=== PATIENT | female | born 1965 | race Caucasian/White ===

== ENCOUNTER 2022-10-20 12:34 | Outpatient (CLI) | payer OTHER, SELFPAY | END 2022-10-20 12:35 | disposition home or self-care (01) | PROVIDERS: Visit Provider Physician Assistant | DX: C79.31 Secondary malignant neoplasm of brain (principal) | CPT/HCPCS: 70553; A9575 ==

== ENCOUNTER 2022-12-09 13:58 | Outpatient (CLI) | payer OTHER, SELFPAY ==
--- NOTE | 2022-12-09 14:15 | CRLHL7_ITS ---
For Patients: As a result of the 21st Century Cures Act, medical imaging exams and procedure reports are released immediately into your electronic medical record. You may view this report before your referring provider. If you have questions, please contact your health care provider. EXAM: PET-CT SKULL BASE TO THIGH CLINICAL INFORMATION: 57-yo female with a history of metastatic non-small cell lung carcinoma with prior left lung wedge resection.. Prior chemotherapy and radiation treatment. Current immunotherapy. Past medical history of laryngeal cancer (2016). Patient is referred for further characterization/response assessment. TECHNIQUE: Radiopharmaceutical: 11.65 mCi of 18F-FDG Uptake time: 66 minutes Blood glucose level at the time of injection: 120 mg/dL Field of view: Skull base to mid-thighs CT protocol: The low-dose, free-breathing, noncontrast CT performed as part of this study is designed for the purposes of attenuation correction and lesion localization, and it is neither sufficient, nor it should be substituted for diagnostic purposes. COMPARISON: PET-CT 07/30/2023 FINDINGS: Physiologic background liver standardized uptake value (SUV mean and SUV max) reported for comparison between PET studies: 2.0 and 2.5. Visualized head and neck: Physiologic uptake in the visualized portions of the brain and salivary glands. Similar configuration and metabolic uptake within the larynx, SUV max 9.2 (fused PET-CT image 47). Previously 9.2. -post treatment changes with similar generalized uptake in the head and neck soft tissues more prominent on the left. Variable uptake within the left sternocleidomastoid and left scalene muscles, SUV max 3.0. Previously 2.9. Head and neck lymph nodes: Persistent metabolic uptake within adjacent low left neck/medial supraclavicular lymph nodes, largest 0.9 cm short axis, SUV max 14.4. Previously 8.6. Lungs: Prior left lung wedge resection. Respiratory motion artifact. No new hypermetabolic lung nodules. Similar small nodular opacity anterior right middle lobe with low level uptake, SUV max 0.4. New focal opacity anterior medial right lower lobe with mild uptake may be inflammatory, SUV max 1.2 (fused PET-CT image 124). Diffuse emphysematous changes with biapical and scattered areas of subpleural scarring. No consolidation. Thoracic lymph nodes: No new hypermetabolic mediastinal or axillary lymph nodes. Variable right hilar suzanne uptake, not measurable, SUV max 3.0. Previously the 2.3. Other chest findings: Mild thoracic aortic vascular calcification. Generalized esophageal uptake is nonspecific, possibly reactive/inflammatory or related to reflux. Hepatobiliary: No abnormal uptake. Spleen: No abnormal uptake. Adrenals: No abnormal uptake. Pancreas: Overall decreased size and number with variable uptake in multiple left upper quadrant masses within and adjacent to the tail of the pancreas. For example: -largest left upper quadrant mass lateral to the pancreatic tail, 2.1 cm, SUV max 21.4 (fused PET-CT image 146). Previously 1.8 cm, SUV max 20.5. -pancreatic tail uptake, 0.9 cm, SUV max 8.4 (fused PET-CT image 144). Previously 2.7 cm transverse, SUV max 20.8 (fused PET-CT image 156). -resolved foci of curvilinear uptake in the left retroperitoneum bordering the pancreatic tail, previously fused PET-CT images 150-151. Kidneys and bladder: No abnormal uptake. No obstruction. Tracer activity in the renal collecting systems. Limited bladder distention with mild wall thickening. Bowel and peritoneum: Long segment curvilinear bowel uptake within the upper abdomen and right lower quadrant extending to the right pelvis is difficult to localize to small or large bowel given motion artifact and paucity of fat. Correlate with symptoms for potential enteritis. Scattered stool. No high-grade obstruction. Abdominopelvic lymph nodes: Persistent and mildly increased left retroperitoneal foci of uptake difficult to discern from adjacent bowel. For example: -new left retroperitoneal lymph node, 0.7 cm short axis, SUV max 9.6 (fused PET-CT image 169). -left retroperitoneal nodular uptake, 1.5 cm, SUV max 24.3 (fused PET-CT image 169). Previously, SUV max 15.8 (fused PET-CT image 174). -more conspicuous left retroperitoneal nodular uptake borders the left psoas difficult to discern from adjacent bowel, SUV max 18.2 (fused PET-CT image 179). Previously 6.8. Musculoskeletal, soft tissues, skin: No suspicious tracer avid osseous lesions or abnormal bony uptake. Healing left posterior 7th rib fracture with uptake. Degenerative type uptake within the shoulders spine and hips.. Bilateral L5 pars defects. -post radiation changes with relative photopenia in the cervical spine. -resolved nodular soft tissue uptake adjacent to the right L2-3 posterior elements. -decreased nodular intercostal soft tissue uptake right posterior T9-T10 level, SUV max 1.8. Previously 2.2. Other: Diffuse aortoiliac atherosclerotic vascular calcifications. IMPRESSION: 1. Prior left lung wedge resection with no suspicious left lung uptake. No new hypermetabolic lung nodules. Small focal opacity anterior right base with mild uptake is nonspecific though may be inflammatory. 2. Increased uptake within adjacent metabolically active low left neck/medial supraclavicular lymph nodes. 3. Decreased overall size and number of multiple left upper quadrant masses within and bordering the pancreatic tail. Residual lesions demonstrate variable intense uptake. 4. Increased uptake within several left retroperitoneal lesions difficult to discern from adjacent bowel. New left retroperitoneal lymph node with moderately intense uptake. 5. Curvilinear long segment bowel uptake within the abdomen, right lower quadrant extending in the pelvis difficult to localize to small or large bowel given paucity of fat and lack of contrast. Correlate for symptoms to exclude enteritis. Consider follow-up CT imaging with oral and IV contrast for further characterization. 6. No new tracer avid osseous lesions. Resolved right paraspinal muscular uptake and decreased uptake within intercostal soft tissues in the lower right posterior chest. 7. Generalized uptake within the head and neck soft tissues with similar increased activity in the larynx. 8. Other nonacute findings as detailed in the body of the report Dictated by Chapincito Hope MD @ 12/15/2022 8:35:08 AM (Electronically Signed)
== END 2022-12-09 13:59 | disposition home or self-care (01) ==
LOC: RAD 14:00
PROVIDERS: Visit Provider Clinical Nurse Specialist
DX: C34.12 Malignant neoplasm of upper lobe, left bronchus or lung (principal)
CPT/HCPCS: 78815; A9552

== ENCOUNTER 2022-12-16 09:30 | Outpatient (RCR) | payer OTHER, SELFPAY ==
--- NOTE | 2022-06-15 14:17 | ONC.NURNOTE ---
Received call from Karissa Laureano PA-C with Rad Onc. Rad Onc to cancel CT on , as it was an old appt, and work on setting up a Pet CT this week. Reviewed pt to see Dr. Bishop 06/21; Rad Onc setting pt up to see Dr. Kebede on 06/[address] Bishop.
[2022-07-22 11:05] VITALS: BMI 16.9
[2022-08-06 10:58] LABS: Basophils Absolute Auto 0.03 K/uL (0.00-0.30); Basophils Percent Auto 0.4 % (0.0-3.0); Eosinophils Absolute Auto 0.08 K/uL (0.00-0.50); Hematocrit 34.6 % (33.0-51.0); Hemoglobin* 11.5 gm/dL (12.0-16.0); Immature Granulocytes Abs Auto 0.01 K/uL (0.00-0.30); Lymphocytes Percent Auto 8.8 % (20-44); Mean Corpuscular HGB Conc 33 gm/dL (32-36); Mean Corpuscular Hemoglobin 29 pg (26-34); Mean Corpuscular Volume 88 fL (80-100); Monocytes Percent Auto 9.8 % (0.0-11.0); Neutrophils Percent Auto 79.9 % (42.0-72.0); Platelet Count* 343 K/uL (140-440); RDW Coefficient of Variation % 14.4 % (11.5-15.5); Red Blood Count 3.95 m/uL (4.00-5.20); White Blood Count* 8.04 K/uL (4.50-11.00)
[2022-08-06 11:03] LABS: Slide Review Reflex No
[2022-08-06 11:04] LABS: Albumin* 4.1 g/dL (3.3-5.0); Chloride* 96 mmol/L (96-114); Potassium* 3.8 mmol/L (3.6-5.1); Sodium* 132 mmol/L (135-149)
[2022-08-06 11:06] LABS: Creatinine* 0.6 mg/dL (0.5-1.5); Est. Creatinine Clearance* 72.09; Estimated Glomerular Filt Rate 104 ml/min
[2022-08-06 11:07] LABS: Alanine Aminotransferase* 23 U/L (4-35); Alkaline Phosphatase* 94 U/L (40-150); Aspartate Amino Transferase* 28 U/L (12-35); Bilirubin Total* 0.2 mg/dL (0.1-1.5); Blood Urea Nitrogen* 12 mg/dL (7-30); Carbon Dioxide* 32 mmol/L (20-32); Glucose* 146 mg/dL (60-115); Total Protein* 7.4 g/dL (6.0-8.3)
[2022-08-06 11:08] LABS: Calcium* 9.1 mg/dL (8.4-10.6)
[2022-08-07 15:25] LABS: Cortisol, Serum 15.8 ug/dL
--- NOTE | 2022-08-12 17:59 | URNOTE ---
Request received from [facility] for authorization for Derian ([id number]). Prior authorization received for a coverage period 08/10/22-11/10/22.
[2022-08-13] MEDS: PEMBROLIZUMAB 200 MG, TUBING PRIMARY 1 EACH, In-line 0.2 micron filter set 1 EACH in 0.... 216 MG IVPB (14:39)
[2022-08-13 15:03] VITALS: BP 111/61; PULSE 110; RESP 18; TEMP 36.4; O2SAT 93
--- NOTE | 2022-08-16 11:13 | AT.DPN ---
denies any discomfort from her treatment tuesday. did mention that she feels like her COPD/asthma is a little flared up. dry cough. up to 2 nebs a day. states her primary has put her on prednisone in the past. denies fever. pt will be calling her primary and encourage to call us back if any problems.
[2022-09-02 08:59] LABS: Basophils Percent Auto 0.1 % (0.0-3.0); Eosinophils Percent Auto 0.5 % (0.0-7.0); Hemoglobin* 12.1 gm/dL (12.0-16.0); Immature Granulocytes Abs Auto 0.03 K/uL (0.00-0.30); Mean Corpuscular HGB Conc 33 gm/dL (32-36); Mean Corpuscular Hemoglobin 28 pg (26-34); Mean Corpuscular Volume 86 fL (80-100); Monocytes Percent Auto 6.9 % (0.0-11.0); Neutrophils Percent Auto 89.3 % (42.0-72.0); Platelet Count* 436 K/uL (140-440); Red Blood Count 4.28 m/uL (4.00-5.20); White Blood Count* 15.26 K/uL (4.50-11.00)
[2022-09-02 09:07] LABS: Slide Review Reflex No
[2022-09-02 09:20] LABS: Albumin* 4.3 g/dL (3.3-5.0); Chloride* 90 mmol/L (96-114); Sodium* 130 mmol/L (135-149)
[2022-09-02 09:21] LABS: Potassium* 4.2 mmol/L (3.6-5.1)
[2022-09-02 09:23] LABS: Alkaline Phosphatase* 110 U/L (40-150); Aspartate Amino Transferase* 40 U/L (12-35); Bilirubin Total* 0.2 mg/dL (0.1-1.5); Blood Urea Nitrogen* 14 mg/dL (7-30); Carbon Dioxide* 35 mmol/L (20-32); Creatinine* 0.7 mg/dL (0.5-1.5); Est. Creatinine Clearance* 63.79; Estimated Glomerular Filt Rate 100 ml/min; Glucose* 147 mg/dL (60-115); Total Protein* 7.7 g/dL (6.0-8.3)
[2022-09-02 09:24] LABS: Alanine Aminotransferase* 41 U/L (4-35); Calcium* 9.2 mg/dL (8.4-10.6)
[2022-09-03 14:10] LABS: Cortisol, Serum 10.6 ug/dL
[2022-09-16 13:48] LABS: Albumin* 3.8 g/dL (3.3-5.0); Chloride* 91 mmol/L (96-114); Potassium* 4.7 mmol/L (3.6-5.1); Sodium* 131 mmol/L (135-149)
[2022-09-16 13:51] LABS: Alanine Aminotransferase* 27 U/L (4-35); Aspartate Amino Transferase* 26 U/L (12-35); Bilirubin Total* 0.2 mg/dL (0.1-1.5); Blood Urea Nitrogen* 11 mg/dL (7-30); Carbon Dioxide* 36 mmol/L (20-32); Creatinine* 0.6 mg/dL (0.5-1.5); Est. Creatinine Clearance* 74.43; Estimated Glomerular Filt Rate 104 ml/min; Glucose* 117 mg/dL (60-115)
[2022-09-16 13:52] LABS: Basophils Percent Auto 0.2 % (0.0-3.0); Eosinophils Percent Auto 0.2 % (0.0-7.0); Hematocrit 34.7 % (33.0-51.0); Hemoglobin* 11.1 gm/dL (12.0-16.0); Immature Granulocytes Pct Auto 0.1 %; Lymphocytes Percent Auto 3.2 % (20-44); Mean Corpuscular HGB Conc 32 gm/dL (32-36); Mean Corpuscular Hemoglobin 28 pg (26-34); Mean Corpuscular Volume 86 fL (80-100); Monocytes Percent Auto 3.6 % (0.0-11.0); Neutrophils Percent Auto 92.7 % (42.0-72.0); Platelet Count* 432 K/uL (140-440); Red Blood Count 4.03 m/uL (4.00-5.20); White Blood Count* 12.07 K/uL (4.50-11.00)
[2022-09-16 13:59] LABS: Slide Review Reflex No
[2022-09-16 14:07] LABS: Alkaline Phosphatase* 89 U/L (40-150)
[2022-09-16] MEDS: PEMBROLIZUMAB 200 MG, TUBING PRIMARY 1 EACH, In-line 0.2 micron filter set 1 EACH in 0.... 216 MG IVPB (14:52)
--- NOTE | 2022-09-17 08:26 | ONC.NURNOTE ---
Received request for records for disability benefits. Records faxed to [place] [facility] [place] [phone].
[2022-09-19 09:41] LABS: Cortisol, Serum 5.1 ug/dL
[2022-10-14 08:30] LABS: Basophils Absolute Auto 0.02 K/uL (0.00-0.30); Basophils Percent Auto 0.2 % (0.0-3.0); Eosinophils Absolute Auto 0.07 K/uL (0.00-0.50); Eosinophils Percent Auto 0.7 % (0.0-7.0); Hematocrit 36.3 % (33.0-51.0); Hemoglobin* 11.7 gm/dL (12.0-16.0); Immature Granulocytes Abs Auto 0.01 K/uL (0.00-0.30); Immature Granulocytes Pct Auto 0.1 %; Lymphocytes Percent Auto 8.9 % (20-44); Mean Corpuscular HGB Conc 32 gm/dL (32-36); Mean Corpuscular Hemoglobin 27 pg (26-34); Mean Corpuscular Volume 84 fL (80-100); Neutrophils Percent Auto 79.1 % (42.0-72.0); Platelet Count* 441 K/uL (140-440); RDW Coefficient of Variation % 14.6 % (11.5-15.5); Red Blood Count 4.34 m/uL (4.00-5.20); White Blood Count* 9.44 K/uL (4.50-11.00)
[2022-10-14 08:36] LABS: Slide Review Reflex No
[2022-10-14 08:37] LABS: Albumin* 4.3 g/dL (3.3-5.0); Chloride* 94 mmol/L (96-114)
[2022-10-14 08:38] LABS: Potassium* 3.6 mmol/L (3.6-5.1); Sodium* 134 mmol/L (135-149)
[2022-10-14 08:40] LABS: Alkaline Phosphatase* 81 U/L (40-150); Aspartate Amino Transferase* 32 U/L (12-35); Bilirubin Total* 0.3 mg/dL (0.1-1.5); Blood Urea Nitrogen* 12 mg/dL (7-30); Carbon Dioxide* 38 mmol/L (20-32); Creatinine* 0.7 mg/dL (0.5-1.5); Est. Creatinine Clearance* 63.02; Estimated Glomerular Filt Rate 100 ml/min; Total Protein* 7.5 g/dL (6.0-8.3)
[2022-10-14 08:41] LABS: Alanine Aminotransferase* 33 U/L (4-35); Calcium* 9.3 mg/dL (8.4-10.6); Glucose* 73 mg/dL (60-115)
[2022-10-14] MEDS: PEMBROLIZUMAB 200 MG, TUBING PRIMARY 1 EACH, In-line 0.2 micron filter set 1 EACH in 0.... 216 MG IVPB (09:37)
[2022-10-14 12:56] LABS: Magnesium* 1.6 mg/dL (1.5-2.6)
--- NOTE | 2022-10-14 15:20 | ONC.NURNOTE ---
Received call from Aruna Glass CNP with [facility], requesting Mg level. Added on to today's labs and result faxed to [phone].
[2022-10-16 01:40] LABS: Cortisol, Serum 2.9 ug/dL
[2022-11-04 09:12] LABS: Basophils Absolute Auto 0.03 K/uL (0.00-0.30); Basophils Percent Auto 0.4 % (0.0-3.0); Eosinophils Absolute Auto 0.13 K/uL (0.00-0.50); Eosinophils Percent Auto 1.6 % (0.0-7.0); Hematocrit 36.4 % (33.0-51.0); Hemoglobin* 11.6 gm/dL (12.0-16.0); Immature Granulocytes Abs Auto 0.01 K/uL (0.00-0.30); Immature Granulocytes Pct Auto 0.1 %; Lymphocytes Percent Auto 6.2 % (20-44); Mean Corpuscular HGB Conc 32 gm/dL (32-36); Mean Corpuscular Hemoglobin 26 pg (26-34); Mean Corpuscular Volume 82 fL (80-100); Monocytes Percent Auto 8.4 % (0.0-11.0); Neutrophils Percent Auto 83.3 % (42.0-72.0); Platelet Count* 368 K/uL (140-440); RDW Coefficient of Variation % 14.9 % (11.5-15.5); Red Blood Count 4.45 m/uL (4.00-5.20); White Blood Count* 7.88 K/uL (4.50-11.00)
[2022-11-04 09:17] LABS: Slide Review Reflex No
[2022-11-04 09:28] LABS: Albumin* 4.1 g/dL (3.3-5.0); Chloride* 97 mmol/L (96-114); Potassium* 4.1 mmol/L (3.6-5.1); Sodium* 135 mmol/L (135-149)
[2022-11-04 09:30] LABS: Bilirubin Total* 0.3 mg/dL (0.1-1.5); Creatinine* 0.7 mg/dL (0.5-1.5); Est. Creatinine Clearance* 63.02; Estimated Glomerular Filt Rate 100 ml/min
[2022-11-04 09:31] LABS: Alanine Aminotransferase* 29 U/L (4-35); Alkaline Phosphatase* 91 U/L (40-150); Aspartate Amino Transferase* 37 U/L (12-35); Blood Urea Nitrogen* 7 mg/dL (7-30); Calcium* 8.7 mg/dL (8.4-10.6); Carbon Dioxide* 35 mmol/L (20-32); Glucose* 106 mg/dL (60-115); Total Protein* 7.3 g/dL (6.0-8.3)
[2022-11-04] MEDS: PEMBROLIZUMAB 200 MG, TUBING PRIMARY 1 EACH, In-line 0.2 micron filter set 1 EACH in 0.... 216 MG IVPB (10:36)
[2022-11-06 01:59] LABS: Cortisol, Serum 6.8 ug/dL
--- NOTE | 2022-11-23 12:41 | PC.NURSE ---
Pt called to inform RN team that she contacted her insurance company ([employer]) and they are going to work fast to get her health insurance reinstated. Pt states that a harris usually takes 3-4 days but she is hoping to have her insurance reactivated by her infusion on . Naty will call [facility] on morning before she leaves [place] to come to [place]. Naty also shares that the ID number [id number] is the account that will be reactivated.
--- NOTE | 2022-11-23 15:44 | ONC.NURNOTE ---
Addendum entered by Melody James RN 11/25/22 16:04: Pt left message this am stating she received a call stating her insurance is now active. Explained to pt we still need to wait for approval. Pt rescheduled for 11/30/21 due to ride availability of pt. Pt instructed to call prior to coming in to make sure drug approved. Pt verbalized understanding of plan of care. Original Note: Per Clara in the business office, pt's [employer] ins was terminated 10/06/22 and her cobra insurance is not active. Per pt she did pay Oct and November for cobra. Pt called her cobra insurance and they states it could take up to 7-10days for it to become active again. Pt states she has thought about signing up for medical assistance as she has difficulty paying for cobra ins. Pt given M[employer] contact number and with pt's permission automobile and property underwriter called social service to help her navigate the process of signing up for medical assistance. Devika or a different delinquency prevention social worker will reach out to pt tomorrow. Pt aware she will not be able to receive her Keytruda on if ins is still inactive.
--- NOTE | 2022-11-30 08:09 | URNOTE ---
[id number] 11/24/2022-02/27/2023. Auth #[id number]
[2022-11-30 11:18] LABS: Basophils Absolute Auto 0.04 K/uL (0.00-0.30); Basophils Percent Auto 0.4 % (0.0-3.0); Eosinophils Absolute Auto 0.08 K/uL (0.00-0.50); Eosinophils Percent Auto 0.7 % (0.0-7.0); Hematocrit 34.5 % (33.0-51.0); Hemoglobin* 10.8 gm/dL (12.0-16.0); Immature Granulocytes Abs Auto 0.01 K/uL (0.00-0.30); Immature Granulocytes Pct Auto 0.1 %; Lymphocytes Percent Auto 5.6 % (20-44); Mean Corpuscular HGB Conc 31 gm/dL (32-36); Mean Corpuscular Hemoglobin 25 pg (26-34); Mean Corpuscular Volume 80 fL (80-100); Neutrophils Percent Auto 87.2 % (42.0-72.0); Platelet Count* 360 K/uL (140-440); RDW Coefficient of Variation % 15.2 % (11.5-15.5)
[2022-11-30 11:22] VITALS: BP 108/55; PULSE 110; RESP 16; TEMP 36; O2SAT 95
[2022-11-30 11:30] LABS: Slide Review Reflex No
[2022-11-30 11:54] LABS: Albumin* 3.8 g/dL (3.3-5.0); Chloride* 94 mmol/L (96-114); Sodium* 133 mmol/L (135-149)
[2022-11-30 11:55] LABS: Potassium* 3.9 mmol/L (3.6-5.1)
[2022-11-30 12:25] LABS: Alanine Aminotransferase* 28 U/L (4-35); Alkaline Phosphatase* 83 U/L (40-150); Aspartate Amino Transferase* 30 U/L (12-35); Bilirubin Total* 0.3 mg/dL (0.1-1.5); Blood Urea Nitrogen* 5 mg/dL (7-30); Calcium* 8.7 mg/dL (8.4-10.6); Carbon Dioxide* 35 mmol/L (20-32); Creatinine* 0.6 mg/dL (0.5-1.5); Est. Creatinine Clearance* 71.71; Estimated Glomerular Filt Rate 103 ml/min; Glucose* 153 mg/dL (60-115); Total Protein* 6.9 g/dL (6.0-8.3)
[2022-11-30] MEDS: PEMBROLIZUMAB 200 MG, TUBING PRIMARY 1 EACH, In-line 0.2 micron filter set 1 EACH in 0.... 216 MG IVPB (13:30)
--- NOTE | 2022-11-30 15:16 | PC.SOCIAL ---
Social work: Met with pt and brother during [facility] visit. Pt shared her frustration over her health insurance situation and is requesting assistance with this. She states she is paying privately for her COBRA insurance to continue to cover her treatments and medication but that she will not be able to afford this for more than another month. Cost of COBRA is about $1100/month. Pt states she had been directed by someone to call [employer] for evaluation for health insurance options and that this organization advised her to keep paying her COBRA and that she does not qualify for an insurance program that would meet her current medical needs. Pt states she does not feel confident about this answer and that she was not able to have her questions answered by [employer].Pt is interested in speaking with someone else regarding [employer] options. Provided pt with list of [employer] navigators in her area of [place]. roll scale worker called [facility] which is listed as a navigator closest to pt's home and they are able to schedule pt for an appointment to assist with insurance options. Provided pt with writen information on this agency and how to contact them. Pt was pleased with this information and will follow up. Discussed that if pt's best option is to keep the COBRA, there may be other financial assiastance options for food or utlities she could use that would then free up the money she would have sent on those services to be spent on the COBRA costs. Pt is interested in receiving information on these services and provided social insurance analyst with her email address. roll scale worker to research resources and options in her area and email those to her for follow up. Pt was appreciative of visit and is aware of how to contact social insurance analyst with questions or if additional resources are needed.
[2022-12-02 03:33] LABS: Cortisol, Serum 4.9 ug/dL
--- NOTE | 2022-12-06 16:57 | PC.SOCIAL ---
Social work: Late Entry: Met with pt during treatment on 11/30/21 at request of nurse regarding pt's concerns about her insurance coverage and options. Pt states she is currently paying for COBRA but will not be able to afford this on-going. She has spoken with someone in the past who told her she would not qualify for a medical plan through [employer] that would cover her treatment needs so she should just keep paying for COBRA. Pt is not sure why she was told this and is interested in exploring the option of Medical Assistance coverage. Provided pt with information on a [employer] Navigator near her home where she can meet with them for free to talk about options for Medical Assistance or other insurance through [employer]. Pt is appreciative of this and will bring her list of questions to ask. Pt was appreciative of information provided and is aware of how to contact this social security assessor if she has questions or need for additional resources.
== END 2022-12-18 23:59 | disposition home or self-care (01) ==
LOC: CCIC 09:30
PROVIDERS: Clinical Nurse Specialist; Internal Medicine Medical Oncology; Nurse Practitioner Family; Visit Provider Internal Medicine Hematology & Oncology
DX: C34.90 Malignant neoplasm of unspecified part of unspecified bronchus or lung (principal); K86.89 Other specified diseases of pancreas; C79.31 Secondary malignant neoplasm of brain; J44.1 Chronic obstructive pulmonary disease with (acute) exacerbation; E87.1 Hypo-osmolality and hyponatremia; E46 Unspecified protein-calorie malnutrition; J06.0 Acute laryngopharyngitis
CPT/HCPCS: 36415; 80053; 82533; 83735; 84443; 85025; 96413; 97802; 99202; 99205; 99212; 99213; 99214; 99215; 99443; J9271

== ENCOUNTER 2022-12-16 10:54 | Outpatient (CLI) | payer OTHER, SELFPAY ==
--- NOTE | 2022-12-16 13:00 | CRLHL7_ITS ---
For Patients: As a result of the Century Cures Act, medical imaging exams and procedure reports are released immediately into your electronic medical record. You may view this report before your referring provider. If you have questions, please contact your health care provider. INDICATION: Dyspnea, Chest pressure. TECHNIQUE: CT chest PE was acquired with 95 cc Isovue 370 IV contrast. COMPARISON: None. FINDINGS: Heart and vasculature: Contrast opacification of the pulmonary arterial tree is adequate. No sign of pulmonary embolism. Heart size is normal. Thoracic aorta and pulmonary artery are normal in caliber. Lungs and pleura: Mild bilateral upper lobe emphysema. Bronchial wall thickening. Right lower lobe centrilobular nodular opacities and ground-glass opacities. No pleural effusions, pleural thickening, or pneumothorax. Lymph nodes/mediastinum: Right hilar adenopathy, measuring up to 1.5 cm. Subcarinal adenopathy. Chest wall: No masses. Upper abdomen: No acute or significant findings. Bones: Chronic right posterior rib fracture. Mild multilevel degenerative changes in your spine. IMPRESSION: No pulmonary embolism identified. Right lower lobe opacities, consistent with infectious/inflammatory process or aspiration. Please note that all CT scans at this facility use dose modulation, iterative reconstruction, and/or weight-based dosing when appropriate to reduce radiation dose to as low as reasonably achievable. Dictated by Jony Butler MD @ 12/16/2022 12:33:39 PM (Electronically Signed)
== END 2022-12-16 10:55 | disposition home or self-care (01) ==
LOC: CT 10:54
PROVIDERS: Visit Provider Physician Assistant
DX: R06.00 Dyspnea, unspecified (principal); R07.89 Other chest pain; J44.9 Chronic obstructive pulmonary disease, unspecified
CPT/HCPCS: 71260; Q9967

== ENCOUNTER 2023-01-19 10:07 | Outpatient (CLI) | payer OTHER, SELFPAY ==
--- NOTE | 2023-01-19 10:15 | CRLHL7_ITS ---
For Patients: As a result of the Century Cures Act, medical imaging exams and procedure reports are released immediately into your electronic medical record. You may view this report before your referring provider. If you have questions, please contact your health care provider. Indication: Secondary malignant neoplasm of brain Technique: Multiplanar, multisequence MRI of the brain obtained without and with contrast. A total of 15 mL of gadolinium-based IV contrast was administered. Comparison: MRI brain 10/20/2022, 06/30/2022 Findings: The ventricles and cortical sulci appear within normal limits for age. No hydrocephalus or herniation. No acute/subacute ischemia, intracranial hemorrhage or abnormal extra-axial fluid collection. Interval decrease in size of the previously noted ring-enhancing lesion at the right superior paramedian parietal lobe, now measuring approximately 5 mm (series 12, image 48), previously 11 mm using a similar technique. There is minimal residual peripheral enhancement. Thin surrounding vasogenic edema has also intervally decreased. White matter signal otherwise appears within normal limits. No new suspicious enhancement identified. Redemonstration of developmental venous anomaly in the region of the left spencer radiata. Midline structures are unremarkable. Major expected intracranial flow voids are visualized.Bone marrow signal is unremarkable. No suspicious findings in the regional soft tissues. Paranasal sinuses and mastoid air cells have a normal signal. Included orbits are unremarkable. Impression: 1. Decreased size of the ring-enhancing lesion at the right superior paramedian parietal lobe, now 5 mm, previously 11 mm. Thin surrounding vasogenic edema has also decreased, with minimal residual peripheral enhancement. 2. No new suspicious intracranial enhancement. No acute intracranial abnormality. Dictated by Ronda Chakraborty MD @ 01/19/2023 4:15:10 PM (Electronically Signed)
== END 2023-01-19 10:08 | disposition home or self-care (01) ==
LOC: MRI 10:08
PROVIDERS: Visit Provider Radiology Radiation Oncology
DX: C79.31 Secondary malignant neoplasm of brain (principal)
CPT/HCPCS: 70553; A9575

== ENCOUNTER 2023-03-10 09:00 | Outpatient (RCR) | payer OTHER, SELFPAY ==
--- NOTE | 2022-12-21 14:03 | ONC.NURNOTE ---
Consultants Intern sent MD notes and request to get patient in to see pulmonary medicine and primary care per Dr. Mullen request. Per pulmonary patient has cancelled last 2 appointments with them.
--- NOTE | 2022-12-22 09:20 | ONC.NURNOTE ---
Patient called to say that she got an appointment with her PCP tomorrow and with Pulmonology on 12/31. Notified Chana about this.
--- NOTE | 2023-01-04 15:52 | ONC.NURNOTE ---
Wine Cellar Worker called pulmonary (Dr. Ortiz) for recent note--Their number is [phone]
[2023-01-06 11:07] LABS: Basophils Percent Auto 0.2 % (0.0-3.0); Eosinophils Percent Auto 0.6 % (0.0-7.0); Hemoglobin* 11.6 gm/dL (12.0-16.0); Immature Granulocytes Pct Auto 0.1 %; Lymphocytes Percent Auto 4.3 % (20-44); Mean Corpuscular HGB Conc 32 gm/dL (32-36); Mean Corpuscular Hemoglobin 24 pg (26-34); Mean Corpuscular Volume 76 fL (80-100); Monocytes Percent Auto 3.4 % (0.0-11.0); Neutrophils Percent Auto 91.4 % (42.0-72.0); Platelet Count* 429 K/uL (140-440); RDW Coefficient of Variation % 15.7 % (11.5-15.5); Red Blood Count 4.75 m/uL (4.00-5.20); White Blood Count* 11.24 K/uL (4.50-11.00)
[2023-01-06 11:08] LABS: Slide Review Reflex No
[2023-01-06 11:17] LABS: Albumin* 3.7 g/dL (3.3-5.0); Chloride* 94 mmol/L (96-114); Potassium* 3.9 mmol/L (3.6-5.1); Sodium* 131 mmol/L (135-149)
[2023-01-06 11:19] LABS: Creatinine* 0.7 mg/dL (0.5-1.5); Estimated Glomerular Filt Rate 100 ml/min
[2023-01-06 11:20] LABS: Alanine Aminotransferase* 32 U/L (4-35); Alkaline Phosphatase* 103 U/L (40-150); Aspartate Amino Transferase* 33 U/L (12-35); Bilirubin Total* 0.4 mg/dL (0.1-1.5); Blood Urea Nitrogen* 17 mg/dL (7-30); Carbon Dioxide* 34 mmol/L (20-32); Glucose* 138 mg/dL (60-115); Total Protein* 7.3 g/dL (6.0-8.3)
[2023-01-06 11:21] LABS: Calcium* 8.4 mg/dL (8.4-10.6)
[2023-01-06] MEDS: PEMBROLIZUMAB 200 MG, TUBING PRIMARY 1 EACH, In-line 0.2 micron filter set 1 EACH in 0.... 216 MG IVPB (11:58)
[2023-01-06 12:10] LABS: Thyroid Stimulating Hormone* 0.746 uIU/mL (0.270-4.20)
[2023-01-07 21:29] LABS: Cortisol, Serum 7.9 ug/dL
[2023-01-27 08:59] LABS: Basophils Absolute Auto 0.04 K/uL (0.00-0.30); Basophils Percent Auto 0.5 % (0.0-3.0); Eosinophils Absolute Auto 0.22 K/uL (0.00-0.50); Eosinophils Percent Auto 2.8 % (0.0-7.0); Hematocrit 32.8 % (33.0-51.0); Hemoglobin* 10.2 gm/dL (12.0-16.0); Immature Granulocytes Abs Auto 0.02 K/uL (0.00-0.30); Immature Granulocytes Pct Auto 0.3 %; Mean Corpuscular HGB Conc 31 gm/dL (32-36); Mean Corpuscular Hemoglobin 24 pg (26-34); Mean Corpuscular Volume 77 fL (80-100); Monocytes Percent Auto 7.3 % (0.0-11.0); Neutrophils Percent Auto 84.1 % (42.0-72.0); Platelet Count* 403 K/uL (140-440); RDW Coefficient of Variation % 17.4 % (11.5-15.5); Red Blood Count 4.24 m/uL (4.00-5.20); White Blood Count* 7.93 K/uL (4.50-11.00)
[2023-01-27 09:06] LABS: Slide Review Reflex No
[2023-01-27 09:18] LABS: Albumin* 3.6 g/dL (3.3-5.0)
[2023-01-27 09:19] LABS: Chloride* 94 mmol/L (96-114); Potassium* 4.8 mmol/L (3.6-5.1); Sodium* 128 mmol/L (135-149)
[2023-01-27 09:21] LABS: Bilirubin Total* 0.6 mg/dL (0.1-1.5); Carbon Dioxide* 36 mmol/L (20-32); Creatinine* 0.6 mg/dL (0.5-1.5); Estimated Glomerular Filt Rate 103 ml/min
[2023-01-27 09:22] LABS: Alanine Aminotransferase* 173 U/L (4-35); Alkaline Phosphatase* 668 U/L (40-150); Aspartate Amino Transferase* 186 U/L (12-35); Blood Urea Nitrogen* 6 mg/dL (7-30); Calcium* 8.8 mg/dL (8.4-10.6); Glucose* 116 mg/dL (60-115)
[2023-01-28 11:34] LABS: Cortisol, Serum 11.3 ug/dL
[2023-01-31 14:26] VITALS: BP 114/67; PULSE 102; RESP 16; TEMP 36.8; O2SAT 94
[2023-01-31 14:38] LABS: Albumin* 3.8 g/dL (3.3-5.0); Chloride* 93 mmol/L (96-114)
[2023-01-31 14:39] LABS: Potassium* 4.3 mmol/L (3.6-5.1); Sodium* 127 mmol/L (135-149)
[2023-01-31 14:41] LABS: Aspartate Amino Transferase* 51 U/L (12-35); Bilirubin Total* 0.3 mg/dL (0.1-1.5); Carbon Dioxide* 33 mmol/L (20-32); Creatinine* 0.7 mg/dL (0.5-1.5); Estimated Glomerular Filt Rate 100 ml/min; Total Protein* 7.2 g/dL (6.0-8.3)
[2023-01-31 14:42] LABS: Alanine Aminotransferase* 89 U/L (4-35); Alkaline Phosphatase* 482 U/L (40-150); Blood Urea Nitrogen* 9 mg/dL (7-30); Calcium* 8.6 mg/dL (8.4-10.6); Glucose* 150 mg/dL (60-115)
--- NOTE | 2023-01-31 15:57 | ONC.NURNOTE ---
Seen by Chana. Treatment was held today. Chana will follow up with Dr. Garcia on how to proceed going forward. Patient left ambulatory. All questions answered. KIKE paperwork given to MD to fill out. Will call patient when it is completed.
[2023-02-11 10:09] VITALS: BP 103/62; PULSE 97; RESP 16; TEMP 36.8; O2SAT 99
[2023-02-11 10:23] LABS: Basophils Absolute Auto 0.04 K/uL (0.00-0.30); Basophils Percent Auto 0.5 % (0.0-3.0); Eosinophils Absolute Auto 0.12 K/uL (0.00-0.50); Eosinophils Percent Auto 1.5 % (0.0-7.0); Hematocrit 33.2 % (33.0-51.0); Hemoglobin* 10.3 gm/dL (12.0-16.0); Immature Granulocytes Abs Auto 0.01 K/uL (0.00-0.30); Immature Granulocytes Pct Auto 0.1 %; Lymphocytes Percent Auto 6.8 % (20-44); Mean Corpuscular HGB Conc 31 gm/dL (32-36); Mean Corpuscular Hemoglobin 24 pg (26-34); Mean Corpuscular Volume 77 fL (80-100); Monocytes Percent Auto 6.7 % (0.0-11.0); Neutrophils Percent Auto 84.4 % (42.0-72.0); Platelet Count* 461 K/uL (140-440); RDW Coefficient of Variation % 17.3 % (11.5-15.5); Red Blood Count 4.31 m/uL (4.00-5.20); White Blood Count* 7.77 K/uL (4.50-11.00)
[2023-02-11 10:39] LABS: Slide Review Reflex No
[2023-02-11 10:41] LABS: Albumin* 3.9 g/dL (3.3-5.0); Chloride* 95 mmol/L (96-114)
[2023-02-11 10:42] LABS: Potassium* 3.8 mmol/L (3.6-5.1); Sodium* 131 mmol/L (135-149)
[2023-02-11 10:44] LABS: Carbon Dioxide* 37 mmol/L (20-32); Creatinine* 0.7 mg/dL (0.5-1.5); Estimated Glomerular Filt Rate 100 ml/min
[2023-02-11 10:45] LABS: Alanine Aminotransferase* 31 U/L (4-35); Alkaline Phosphatase* 175 U/L (40-150); Aspartate Amino Transferase* 30 U/L (12-35); Bilirubin Total* 0.1 mg/dL (0.1-1.5); Blood Urea Nitrogen* 10 mg/dL (7-30); Calcium* 8.9 mg/dL (8.4-10.6); Glucose* 91 mg/dL (60-115); Total Protein* 7.3 g/dL (6.0-8.3)
[2023-02-11] MEDS: PEMBROLIZUMAB 200 MG, TUBING PRIMARY 1 EACH, In-line 0.2 micron filter set 1 EACH in 0.... 216 MG IVPB (12:12)
[2023-02-12 17:14] LABS: Cortisol, Serum 8.5 ug/dL
--- NOTE | 2023-02-25 08:49 | ONC.NURNOTE ---
Pain management. Patient called office asking to speak to STAGE DIRECTOR for medication changes. She is having more abdominal pain and would like some adjustments made. Patient notified that STAGE DIRECTOR is out until late next week. Patient has an appointment next with Dr. Garcia, she was instructed to talk to her about this. Patient offered to move appointment to Tuesday with Dr. Garay, or potentially Tuesday if there is a cancellation. Patient declined, as she can not find a ride for these days. Patient instructed to contact PCP or go to ER if pain significant and can not wait until 's appointment. Patient understanding of this and need to be seen by any provider to provide pain medication changes.
--- NOTE | 2023-03-03 10:53 | URNOTE ---
Received request for prior auth for Derian ([id number]). This has been approved 02/28/2023-08/30/2023. Auth #[id number]
[2023-03-03 12:47] LABS: Basophils Absolute Auto 0.04 K/uL (0.00-0.30); Basophils Percent Auto 0.4 % (0.0-3.0); Eosinophils Absolute Auto 0.07 K/uL (0.00-0.50); Eosinophils Percent Auto 0.8 % (0.0-7.0); Hemoglobin* 9.8 gm/dL (12.0-16.0); Immature Granulocytes Abs Auto 0.01 K/uL (0.00-0.30); Immature Granulocytes Pct Auto 0.1 %; Lymphocytes Percent Auto 5.6 % (20-44); Mean Corpuscular HGB Conc 31 gm/dL (32-36); Mean Corpuscular Hemoglobin 23 pg (26-34); Mean Corpuscular Volume 76 fL (80-100); Neutrophils Percent Auto 86.1 % (42.0-72.0); Platelet Count* 399 K/uL (140-440); Red Blood Count 4.19 m/uL (4.00-5.20)
[2023-03-03 13:06] LABS: Albumin* 3.9 g/dL (3.3-5.0); Chloride* 92 mmol/L (96-114)
[2023-03-03 13:07] LABS: Potassium* 4.5 mmol/L (3.6-5.1); Sodium* 130 mmol/L (135-149)
[2023-03-03 13:09] LABS: Aspartate Amino Transferase* 28 U/L (12-35); Bilirubin Total* 0.2 mg/dL (0.1-1.5); Carbon Dioxide* 37 mmol/L (20-32); Creatinine* 0.6 mg/dL (0.5-1.5); Estimated Glomerular Filt Rate 103 ml/min
[2023-03-03 13:10] LABS: Alanine Aminotransferase* 23 U/L (4-35); Alkaline Phosphatase* 110 U/L (40-150); Blood Urea Nitrogen* 12 mg/dL (7-30); Calcium* 8.6 mg/dL (8.4-10.6); Glucose* 156 mg/dL (60-115); Total Protein* 7.3 g/dL (6.0-8.3)
[2023-03-03 13:27] LABS: Slide Review Reflex No
[2023-03-04 17:16] LABS: Cortisol, Serum 3.6 ug/dL
--- NOTE | 2023-03-09 11:47 | ONC.NURNOTE ---
Patient seen in clinic and patient had treatment held due to loose stools and stomach pain. Ct reviewed by Dr. Garcia and at this point pt denies liquid or loose stools stating they are more formed. Was instructed to bring in stool sample if liquid/loose stool so patient to call if that happens again. Hasn't had any in a week so patient to come in for treatment per Dr. Garcia. Patient scheduled for treatment at and then will have PET March 31 with follow up on 04/14. Did also make appointment for patient to see provider 03/24 with follow up
[2023-03-10 09:28] LABS: Basophils Absolute Auto 0.06 K/uL (0.00-0.30); Basophils Percent Auto 0.7 % (0.0-3.0); Eosinophils Absolute Auto 0.13 K/uL (0.00-0.50); Eosinophils Percent Auto 1.4 % (0.0-7.0); Hematocrit 31.3 % (33.0-51.0); Hemoglobin* 9.7 gm/dL (12.0-16.0); Immature Granulocytes Abs Auto 0.01 K/uL (0.00-0.30); Immature Granulocytes Pct Auto 0.1 %; Lymphocytes Percent Auto 9.2 % (20-44); Mean Corpuscular HGB Conc 31 gm/dL (32-36); Mean Corpuscular Hemoglobin 23 pg (26-34); Mean Corpuscular Volume 75 fL (80-100); Monocytes Percent Auto 9.5 % (0.0-11.0); Neutrophils Percent Auto 79.1 % (42.0-72.0); Platelet Count* 370 K/uL (140-440); Red Blood Count 4.19 m/uL (4.00-5.20); White Blood Count* 9.09 K/uL (4.50-11.00)
[2023-03-10 09:32] LABS: Total Cells Counted 100
[2023-03-10 09:33] LABS: Slide Review Reflex No
[2023-03-10 09:41] LABS: Albumin* 3.8 g/dL (3.3-5.0); Chloride* 93 mmol/L (96-114); Sodium* 131 mmol/L (135-149)
[2023-03-10 09:42] LABS: Potassium* 3.9 mmol/L (3.6-5.1)
[2023-03-10 09:44] LABS: Alanine Aminotransferase* 23 U/L (4-35); Alkaline Phosphatase* 85 U/L (40-150); Aspartate Amino Transferase* 27 U/L (12-35); Bilirubin Total* 0.2 mg/dL (0.1-1.5); Blood Urea Nitrogen* 12 mg/dL (7-30); Carbon Dioxide* 36 mmol/L (20-32); Creatinine* 0.7 mg/dL (0.5-1.5); Estimated Glomerular Filt Rate 100 ml/min; Glucose* 109 mg/dL (60-115); Total Protein* 7.1 g/dL (6.0-8.3)
[2023-03-10 09:45] LABS: Calcium* 8.6 mg/dL (8.4-10.6)
[2023-03-10 09:54] VITALS: BP 92/58; PULSE 104; RESP 16; TEMP 36.9; O2SAT 93
[2023-03-10] MEDS: PEMBROLIZUMAB 200 MG, TUBING PRIMARY 1 EACH, In-line 0.2 micron filter set 1 EACH in 0.... 216 MG IVPB (10:39)
--- NOTE | 2023-03-10 16:21 | ONC.NURNOTE ---
did review pts med list with her today. only change is she is taking probiotics. states occ diarrhea and constipation. teaching re metamucil. using a rinse and spit for slight tongue thrush. Serum Na a bit low. nl for pt. Chana Sweet APRN aware and ok to treat.
--- NOTE | 2023-03-18 15:09 | ONC.NURNOTE ---
Addendum entered by Melody James RN 03/21/23 15:10: Pt left message stating she was seen in the ER on Tuesday and she has a blood clot in her arm that was caused by a new enlarged lymph node. Records received from [facility] for Dr. Garay to review. Next step per Dr. Garay is a PET scan that is already scheduled for 03/31/23. Dr. Garay aware of this. Pt also has an appt with an oncologist closer to home tomorrow, show card writer will follow up with pt tomorrow afternoon to determine ongoing plan of care after she visits with the oncologist. Original Note: Patient called office stating that she was having swelling in her left arm that started about two days ago. She was told that she needs to be seen today to have this evaluated as this could be a blood clot. She was told that she could be seen by primary, urgent care, or ER. No need to call ambulance, but does need to be seen. Patient understanding of this.
--- NOTE | 2023-03-23 16:00 | ONC.NURNOTE ---
Pt called today stating she will be transferring care to [facility]- Oncologist Dr. Gerardo. Pt will continue to follow up with Dr. Kebede at Radiation oncology and continue to have her MRI's here at the [facility].
--- NOTE | 2023-04-25 09:09 | ONC.NURNOTE ---
Received fax with summary of treatment plan from Dr. Kebede with [facility]. Called [facility] to review pt's transfer of Med Onc care to Dr. Gerardo with [facility] and for care to be coordinated with that team.
== END 2023-07-05 23:59 | disposition home or self-care (01) ==
LOC: CCIC 09:00
PROVIDERS: Clinical Nurse Specialist; Internal Medicine Medical Oncology; Nurse Practitioner Family; Physician Assistant; Visit Provider Internal Medicine Hematology & Oncology
DX: C34.90 Malignant neoplasm of unspecified part of unspecified bronchus or lung (principal); Z51.12 Encounter for antineoplastic immunotherapy; C79.31 Secondary malignant neoplasm of brain
CPT/HCPCS: 36415; 74177; 80053; 82533; 84443; 85007; 85025; 96413; 99212; 99213; 99214; 99215; J9271; Q9967